=== PATIENT | female | born 1970 | race Caucasian/White ===

== ENCOUNTER 2016-11-23 18:50 | Emergency (ER) | payer MEDICAID ==
[2016-11-23 19:03] VITALS: BP 160/73; RESP 16; TEMP 98.6; O2SAT 98; BMI 37.8
--- NOTE | 2016-11-23 19:26 | ED PDOC ---
Arrival/HPI - General Chief Complaint: Back Pain Time Seen by Provider: 11/23/16 19:21 Historian: Patient - History of Present Illness Narrative History of Present Illness (Text): 11/23/16 19:28 46 yo F with past medical history of chronic low back pain, presents with low back pain radiating down the left leg to the left toes 2 weeks. Patient states that she is currently undergoing physical therapy for the past month with no improvement of her back pain. She further states that she has had 2 back surgeries in the past, the last one was in October of last year, states the hardware initially placed was removed from her lower back with no improvement of her pain. Patient states that she currently follows up with her process laboratory specialist Dr. Washington at [facility] in [place], she is currently on tramadol and Valium with mild improvement of the pain, has taken advil and naprosyn with no improvement, and adds that she is scheduled to see a pain management doctor in January. Pt is here today due to the low back pain radiating down the L leg which is new, she has had radicular pain in the R leg in the past which has subsided. Otherwise: (-) paresthesias, (-) weakness, (-) acute bowel or bladder dysfunction, (-) fever. Has history of prior back problem. PMD [place] Past Medical History - Provider Review Nursing Documentation Reviewed: Yes - Tetanus Immunization Tetanus Immunization: Unknown - Past Medical History Past Medical History: No Previous - Pulmonary Hx Asthma: Yes - Psychiatric Hx Depression: No Hx Emotional Abuse: No Hx Physical Abuse: No Hx Substance Use: No - Past Surgical History Past Surgical History: Non-Contributing - Surgical History Hx Orthopedic Surgery: Yes (back) - Suicidal Assessment Feels Threatened In Home Enviroment: No Family/Social History - Physician Review Nursing Documentation Reviewed: Yes Family/Social History: No Known Family HX Smoking Status: Never Smoked Hx Alcohol Use: No Hx Substance Use: No Hx Substance Use Treatment: No Allergies/Home Meds Allergies/Adverse Reactions: Allergies aspirin Allergy (Verified 07/23/15 04:18) RASH Review of Systems - Review of Systems Constitutional: Normal. absent: Fatigue, Weight Change, Fevers Respiratory: Normal. absent: SOB, Cough, Sputum Cardiovascular: Normal. absent: Chest Pain, Palpitations, Edema Gastrointestinal: Normal. absent: Abdominal Pain, Stool Changes, Appetite Changes Musculoskeletal: Normal, Back Pain (chronic low back pain). absent: Arthralgias , Neck Pain Skin: Normal. absent: Rash, Pruritis, Skin Lesions Physical Exam Vital Signs Reviewed: Yes Vital Signs Temp Pulse Resp BP Pulse Ox 11/23/16 20:17 88 98 11/23/16 19:02 98.6 F 108 H 16 160/73 H 98 Temperature: Afebrile Blood Pressure: Hypertensive Pulse: Tachycardic Respiratory Rate: Normal Appearance: Positive for: Well-Appearing, Non-Toxic Pain Distress: Mild Mental Status: Positive for: Alert and Oriented X 3 - Systems Exam Head: Present: Atraumatic, Normocephalic Neck: Present: Normal Range of Motion. No: MIDLINE TENDERNESS Respiratory/Chest: Present: Clear to Auscultation, Good Air Exchange. No: Respiratory Distress, Accessory Muscle Use, Wheezes, Rales, Rhonchi Cardiovascular: Present: Regular Rate and Rhythm, Normal S1, S2. No: Murmurs Abdomen: Present: Normal Bowel Sounds. No: Tenderness, Distention, Peritoneal Signs, Rebound, Guarding, Mass/Organomegaly Back: Present: Normal Inspection, Paraspinal Tenderness (to the lower back). No : CVA Tenderness, Midline Tenderness, Pain with Leg Raise Upper Extremity: Present: Normal Inspection, Normal ROM, NORMAL PULSES, Neurovascularly Intact, Capillary Refill < 2s. No: Edema, Tenderness, Temperature Abnormalties Lower Extremity: Present: Normal Inspection, NORMAL PULSES, Normal ROM, Neurovascularly Intact, Capillary Refill < 2 s. No: Edema, Tenderness, Swelling , Temperature Abnormalties Neurological: Present: GCS=15, CN II-XII Intact, Speech Normal, Motor Func Grossly Intact, Normal Sensory Function, Normal Cerebellar Funct, Norm Deep Tendon Reflexes Skin: Present: Warm, Dry, Normal Color. No: Rashes Psychiatric: Present: Alert, Oriented x 3, Normal Insight, Normal Concentration Medical Decision Making ED Course and Treatment: 11/23/16 19:23 46 yo F with past medical history of chronic low back pain, presents with low back pain radiating down the left leg to the toes 2 weeks. Based on history and exam, likely sciatica vs acute low back pain, possible neuropathy. Given toradol IM and solumedrol IM. On re-evaluation, patient reports significant improvement of pain, patient able to stand up and ambulate in the ER in no distress. Repeat VS P 88 BP 152/87. Patient advised to follow up with her process laboratory specialist and pain management doctor as scheduled, continue PT and current medications. Patient states she fully agrees with and understands discharge instructions. States that she agrees with the plan and disposition. Verbalized and repeated discharge instructions and plan. I have given the patient opportunity to ask any additional questions. Follow up with process laboratory specialist and pain management in 1-2 days without fail. Advised to take medication as prescribed. Return to the emergency room at any time for any new or worsening symptoms. - Medication Orders Current Medication Orders: Discontinued Medications Ketorolac Tromethamine (Toradol) 60 mg IM STAT STA Stop: 11/23/16 19:22 Last Admin: 11/23/16 20:00 Dose: 60 mg Methylprednisolone (Solu-Medrol) 125 mg IM STAT STA Stop: 11/23/16 19:22 Last Admin: 11/23/16 20:00 Dose: 125 mg - PA / [employer] / Resident Statement MD/DO has reviewed & agrees with the documentation as recorded. Disposition/Present on Arrival - Present on Arrival Any Indicators Present on Arrival: No History of DVT/PE: No History of Uncontrolled Diabetes: No Urinary Catheter: No History of Decub. Ulcer: No History Surgical Site Infection Following: None - Disposition Have Diagnosis and Disposition been Completed?: Yes Diagnosis: Sciatica Disposition: HOME/ ROUTINE Disposition Time: 19:22 Patient Plan: Discharge Condition: GOOD Discharge Instructions (ExitCare): Sciatica (ED) Print Language: INDIAN Additional Instructions: Thank you for letting us take care of you today. You were treated for sciatica. The emergency medical care you received today was directed at your acute symptoms. If you were prescribed any medication, please fill it and take as directed. It may take several days for your symptoms to resolve. Return to the Emergency Department if your symptoms worsen, do not improve, or if you have any other problems. Please contact your doctor in 2 days for re-evaluation and follow up. Bring any paperwork you were given at discharge with you along with any medications you are taking to your follow up visit. Our treatment cannot replace ongoing medical care by a primary care provider (PCP) outside of the emergency department. Thank you for allowing the [facility] [employer] team to be part of your care today. Prescriptions: Methylprednisolone [Medrol Dose Pack (21 tabs)] 4 mg PO DAILY #21 mg Referrals: Dakota Escobedo MD [Primary Care Provider] - Follow up with primary Forms: WORK NOTE
[2016-11-23 20:18] VITALS: PULSE 88
== END 2016-11-23 20:18 | disposition home or self-care (01) ==
LOC: ED 18:50
DX: M54.30 Sciatica, unspecified side (principal)
CPT/HCPCS: 96372; 99283; J1885; J2930

== ENCOUNTER 2017-07-02 17:34 | Emergency (ER) | payer MEDICAID ==
[2017-07-02 17:34] VITALS: BMI 37.8
[2017-07-02 17:52] VITALS: TEMP 98.8
--- NOTE | 2017-07-02 18:24 | ED PDOC ---
Arrival/HPI - General Chief Complaint: Back Pain Time Seen by Provider: 07/02/17 18:17 Historian: Patient, Family EM Caveat: Acuity of Condition - History of Present Illness Narrative History of Present Illness (Text): 07/02/17 18:17 Pt is a 46 yo female BIB her sister for moderate-sever low back pain x 1 day while reaching to get pots out of a lower cupboard at home. Pt describes getting stuck and having intense sharp, burning pain that referred down to her left foot. Pt suffers fro chronic pain and is currently managed by Dr. Rodriguez. Pt had L4-5 spinal fusion in 2011 and followed with fascilcular nerve block on the left L3-5 without significant change in status. She states that she takes duloxetine and Sabella for nerve pain. Pt denies trauma or falling, recent surgery, illness or other complication. Pain is rated 10/10. Reports adverse reaction to NSAIDs and ASA. 07/02/17 19:51 Time/Duration: 24 hours Symptom Onset: Sudden Symptom Course: Unchanged, Worsening Quality: Aching, Burning Severity Level: Moderate Activities at Onset: Rest, Light, Sleeping Context: Home, Work Past Medical History - Provider Review Nursing Documentation Reviewed: Yes - Travel History Have you recently traveled outside [place] w/in the past 3 mons?: No - Infectious Disease Hx of Infectious Diseases: None - Tetanus Immunization Tetanus Immunization: Unknown - Reproductive Menopause: Yes - Past Medical History Past Medical History: No Previous - Pulmonary Hx Asthma: Yes - Musculoskeletal/Rheumatological Hx Back Pain: Yes - Psychiatric Hx Depression: No Hx Emotional Abuse: No Hx Physical Abuse: No Hx Substance Use: No - Past Surgical History Past Surgical History: Non-Contributing - Surgical History Hx Orthopedic Surgery: Yes (back) - Anesthesia Hx Anesthesia: No - Suicidal Assessment Feels Threatened In Home Enviroment: No Family/Social History - Physician Review Nursing Documentation Reviewed: Yes Family/Social History: Unknown Family HX Smoking Status: Never Smoked Hx Alcohol Use: No Hx Substance Use: No Hx Substance Use Treatment: No Allergies/Home Meds Allergies/Adverse Reactions: Allergies aspirin Allergy (Verified 07/02/17 17:51) RASH Home Medications: Home Meds Medication Instructions Recorded Confirmed DULoxetine [Cymbalta] 60 mg PO DAILY 07/02/17 07/02/17 Milnacipran HCl [Savella] 0 mg PO PRN PRN 07/02/17 07/02/17 Review of Systems - Review of Systems Systems not reviewed;Unavailable: Acuity of Condition Constitutional: Normal Eyes: Normal ENT: Normal Respiratory: Normal Cardiovascular: Normal Gastrointestinal: Normal Genitourinary Female: Normal Musculoskeletal: Back Pain Skin: Normal Neurological: Normal, Gait Changes Endocrine: Normal Hemo/Lymphatic: Normal Psychiatric: Normal Physical Exam Vital Signs Reviewed: Yes Vital Signs Temp Pulse Resp BP Pulse Ox 07/02/17 20:13 18 98 07/02/17 19:39 95 H 18 116/62 100 07/02/17 17:47 98.8 F 110 H 20 153/96 H 100 07/02/17 17:34 98.8 F 110 H 20 153/96 H 100 Temperature: Afebrile Blood Pressure: Normal Pulse: Tachycardic Respiratory Rate: Normal Appearance: Positive for: Well-Appearing, Non-Toxic, Comfortable Pain Distress: None Mental Status: Positive for: Alert and Oriented X 3 - Systems Exam Head: Present: Atraumatic, Normocephalic Pupils: Present: PERRL Extroacular Muscles: Present: EOMI Conjunctiva: Present: Normal Mouth: Present: Moist Mucous Membranes Neck: Present: Normal Range of Motion Respiratory/Chest: Present: Clear to Auscultation, Good Air Exchange. No: Respiratory Distress, Accessory Muscle Use Cardiovascular: Present: Regular Rate and Rhythm, Normal S1, S2. No: Murmurs Abdomen: Present: Normal Bowel Sounds. No: Tenderness, Distention, Peritoneal Signs Back: Present: Normal Inspection Upper Extremity: Present: Normal Inspection. No: Cyanosis, Edema Lower Extremity: Present: Normal Inspection, NORMAL PULSES, Normal ROM, Tenderness (over the Left SIJ and paraspinals), Other (Positive SLR and SIVA on the left SIJ). No: Edema Neurological: Present: GCS=15, CN II-XII Intact, Speech Normal, Motor Func Grossly Intact, Normal Sensory Function, Norm Deep Tendon Reflexes Skin: Present: Warm, Dry, Normal Color. No: Rashes Psychiatric: Present: Alert, Oriented x 3, Normal Insight, Normal Concentration Medical Decision Making ED Course and Treatment: 07/02/17 18:24 Pt is a 46 yo female BIB her sister for moderate-sever low back pain x 1 day while reaching to get pots out of a lower cupboard at home Plan XR of Lumbar spine Toradol IM 30mg for pain assess and dispo home Progress Note Pt very reactive to palpation and movement; Ultracet x1 STAT for pain LS XR is remarkable for previous surgery; likely requires CT w and w/o contrast to assess soft tissue pathology Toradol 30 mg IM STAT given (pt tolerated this medication well last visit) prior to dispo Dispo home with ultracet and flexeril with instructions to see pain specialist kushal Pt was able to stand and ambulate out of the ER without issue 07/04/17 11:51 - RAD Interpretation Radiology Orders: 07/02/17 18:25 LS SPINE AP/LAT [RAD] Stat Mortgage Clerk: ED Physician - Medication Orders Current Medication Orders: Discontinued Medications Ketorolac Tromethamine (Toradol) 30 mg IM STAT STA Stop: 07/02/17 19:53 Last Admin: 07/02/17 20:12 Dose: 30 mg MAR Pain Assessment Document 07/02/17 20:12 [email or web address] (Rec: 07/02/17 20:13 [email or web address] [id number]) Pain Reassessment Is this a pain reassessment? No Sleep Is patient sleeping during reassessment? No Presence of Pain Presence of Pain Yes Pain Scale Used Pain Scale Used Numeric Location Pain Location Body Site Generalized Description Description Constant Intensity of Pain at present 7 Pain Behavior Facial Grimacing Aggravating Factors Changing Position Alleviating Factors/Management Position Change Techniques IM Administration Charges Document 07/02/17 20:12 [email or web address] (Rec: 07/02/17 20:13 [email or web address] [id number]) Injection Site MAR Injection Site Left Deltoid Charges for Administration # of IM Administrations 1 Tramadol/Acetaminophen (Ultracet 37.5/325 Mg) 1 tab PO STAT STA Stop: 07/02/17 18:27 Last Admin: 07/02/17 18:45 Dose: 1 tab MAR Pain Assessment Document 07/02/17 18:45 SRE (Rec: 07/02/17 18:46 SRE [id number]) Pain Reassessment Is this a pain reassessment? Yes Sleep Is patient sleeping during reassessment? No Presence of Pain Presence of Pain Yes Pain Scale Used Pain Scale Used Numeric Location Left, Right or Bilateral Left Pain Location Body Site Hip Description Description Constant Disposition/Present on Arrival - Present on Arrival Any Indicators Present on Arrival: Yes History of DVT/PE: No History of Uncontrolled Diabetes: No Urinary Catheter: No History of Decub. Ulcer: No History Surgical Site Infection Following: None - Disposition Have Diagnosis and Disposition been Completed?: Yes Diagnosis: Lumbar radiculopathy, acute, Acute bilateral low back pain, Sacroiliac inflammation Disposition: HOME/ ROUTINE Disposition Time: 19:40 Patient Plan: Discharge Condition: STABLE Discharge Instructions (ExitCare): Tramadol/Acetaminophen (By mouth), Lumbar Radiculopathy (ED), Back Exercises (ED) Additional Instructions: Dear Patient, You have low back muscle and nerve pain. Take the medication youhave prescribed to manage the pain. We advise that you follow up with your primary care doctor or bait painter to find the best solution to managing your pain safely. Should you feel and increase in pain, swelling, numbness, loss of bowel or urinary bladder or any other alarming signs and symptoms, return to the emergency department for evaluation All the best in your recovery. Prescriptions: Methocarbamol [Robaxin] 500 mg PO Q12 #10 tab Tramadol HCl/Acetaminophen [Tramadol-Acetaminophn 37.5-325] 1 tab PO BID #10 tab Referrals: Dakota Escobedo MD [Primary Care Provider] - Follow up with primary Forms: [employer] ([place]), WORK NOTE
[2017-07-02] MEDS ORDERED: TraMADol/Apap 37.5/325 mg Tab PO STA (18:26)
[2017-07-02 19:42] VITALS: BP 116/62; PULSE 95; RESP 18
[2017-07-02 20:14] VITALS: O2SAT 98
--- NOTE | 2017-07-03 08:28 | RAD ---
PROCEDURE: Radiographs of the Lumbar Spine. HISTORY: LBP COMPARISON: No prior. FINDINGS: BONES: Normal alignment. No listhesis. No fracture. DISC SPACES: There is an intradiscal fusion device at L4-5. There is normal alignment OTHER FINDINGS: None. IMPRESSION: Unremarkable radiographs of the lumbar spine.
== END 2017-07-02 20:14 | disposition home or self-care (01) ==
LOC: ED 17:34
DX: M54.16 Radiculopathy, lumbar region (principal); M46.1 Sacroiliitis, not elsewhere classified; M54.5 Low back pain
CPT/HCPCS: 72100; 96372; 99283; J1885